=== PATIENT | male | born 1975 | race Two or more races ===

== ENCOUNTER 2021-10-02 13:18 | Inpatient (IN) | payer MEDICAID, OTHER ==
[~2021-10-02] VITALS: Ht 167.6 cm; Wt 53.8 kg
[2021-10-02 15:32] LABS: Basophils # (auto) 0 10 ^3/uL (0-0.2); Basophils % (auto) 0.5 % (0.0-2.0); Eosinophils # (auto) 0.2 10 ^3/uL (0-0.8); Eosinophils % (auto) 3.1 % (0.0-7.0); Hematocrit 30.1 % (41.0-53.0); Hemoglobin 10.1 g/dL (13.5-17.5); Lymphocytes # (auto) 0.9 10 ^3/uL (0.4-5.4); Lymphocytes % (auto) 15.6 % (10.0-50.0); Mean Corpuscular Hemoglobin 33.1 pg (28.0-32.0); Mean Corpuscular Hgb Conc. 33.5 g/dL (32.0-36.0); Mean Corpuscular Volume 98.6 fL (80.0-100.0); Monocytes # (auto) 0.4 10 ^3/uL (0-1.3); Monocytes % (auto) 7.1 % (0.0-12.0); Neutrophils # (auto) 4.4 10 ^3/uL (1.6-8.6); Neutrophils % (auto) 73.7 % (37.0-80.0); Nucleated Red Blood Cells % 0.1 %; Red Blood Cells 3.05 10^6/uL (4.5-5.90); Red Cell Distribution Width 13.4 % (11.8-14.3); White Blood Cell 5.9 10^3/uL (4.4-10.8)
[2021-10-02 15:46] LABS: Albumin 1.4 g/dL (3.4-5.0); Calcium 6.7 mg/dL (8.5-10.1); Potassium 4.2 mmol/L (3.5-5.1)
[2021-10-02 15:55] LABS: BUN/Creatinine Ratio 12.2; Bilirubin, Total 0.4 mg/dL (0.2-1.0)
[2021-10-02] MEDS ORDERED: CLINDAMYCIN 600MG IV 50 ML IV ONE (17:45)
[2021-10-02] MEDS ORDERED: ACETAMINOPHEN 325 MG TAB PO PRN (21:45)
[2021-10-02] MEDS ORDERED: DOCUSATE SOD 100 MG CAP PO PRN (21:45)
[2021-10-02] MEDS ORDERED: DEXTROSE (50%) 50ML SYRG IV PRN (21:45)
[2021-10-02] MEDS ORDERED: ONDANSETRON HCL 4 MG/2 ML VIAL IV PRN (21:45)
[2021-10-02] MEDS ORDERED: IOHEXOL 350 MG/ML 100ML IJ ONE (22:05)
[2021-10-03] MEDS ORDERED: MORPHINE SULFATE INJECTION 2 MG/ML SYRG IV PRN (00:15)
[2021-10-03] MEDS ORDERED: FUROSEMIDE 20 MG/2 ML VIAL IV ONE (00:15)
[2021-10-03] MEDS ORDERED: NITROGLYCERIN 0.4 MG SL TAB SL PRN (00:15)
[2021-10-03] MEDS: CLINDAMYCIN 600MG IV 50 ML IV SCH ×4 (04:00→22:34)
[2021-10-03] MEDS: ASCORBIC ACID 500 MG TAB PO SCH ×3 (04:32→22:36)
[2021-10-03] MEDS: InsuLIN REG 1unit/0.01ml Soln (100units/ml) SC SCH ×5 (04:32→22:40)
[2021-10-03] MEDS: SODIUM CHLOR 0.9% PF (SALINE LOCK) 10ML VIAL/SYR IV SCH ×4 (04:32→22:35)
[2021-10-03] MEDS: ACCU-CHEK COMFORT CURVE STRIP VI SCH ×5 (04:33→22:36)
[2021-10-03 04:58] LABS: Basophils # (auto) 0 10 ^3/uL (0-0.2); Basophils % (auto) 0.4 % (0.0-2.0); Eosinophils # (auto) 0.2 10 ^3/uL (0-0.8); Eosinophils % (auto) 2.8 % (0.0-7.0); Hematocrit 26.4 % (41.0-53.0); Lymphocytes # (auto) 1.1 10 ^3/uL (0.4-5.4); Lymphocytes % (auto) 19.8 % (10.0-50.0); Mean Corpuscular Hemoglobin 33.2 pg (28.0-32.0); Mean Corpuscular Hgb Conc. 34.1 g/dL (32.0-36.0); Mean Corpuscular Volume 97.4 fL (80.0-100.0); Monocytes # (auto) 0.3 10 ^3/uL (0-1.3); Monocytes % (auto) 4.9 % (0.0-12.0); Neutrophils # (auto) 4.1 10 ^3/uL (1.6-8.6); Neutrophils % (auto) 72.1 % (37.0-80.0); Red Blood Cells 2.71 10^6/uL (4.5-5.90); Red Cell Distribution Width 13.1 % (11.8-14.3); White Blood Cell 5.7 10^3/uL (4.4-10.8)
[2021-10-03] MEDS: ALBUMIN 25% 50 ML IV SCH ×3 (05:09→17:50)
[2021-10-03 05:15] LABS: Albumin 1.3 g/dL (3.4-5.0); Calcium 6.8 mg/dL (8.5-10.1); Potassium 4.3 mmol/L (3.5-5.1)
[2021-10-03 05:19] LABS: BUN/Creatinine Ratio 10.6; Bilirubin, Total 0.4 mg/dL (0.2-1.0); Total Protein 4.4 g/dL (6.4-8.2)
[2021-10-03] MEDS: HYDROcodone-ACET 5/325MG TAB PO PRN (06:57)
[2021-10-03 10:00] VITALS: BP 107/74
[2021-10-03] MEDS: ENOXAPARIN SOD 40 MG/0.4 ML SYRINGE SC SCH (10:00)
[2021-10-03] MEDS ORDERED: ZINC SULFATE 220mg CAP or TAB PO SCH (10:00)
[2021-10-03] MEDS: MULTIPLE VITAMIN TAB PO SCH (10:00)
[2021-10-03] MEDS ORDERED: FAMOTIDINE (10MG/ML) 2ML VL IV SCH (10:00)
[2021-10-03] MEDS ORDERED: FUROSEMIDE 20 MG/2 ML VIAL IV SCH (10:00)
[2021-10-03] MEDS ORDERED: ALBUMIN 25% 50 ML IV SCH (20:30)
[2021-10-03 21:12] VITALS: BP 94/71
[2021-10-03] MEDS: FUROSEMIDE 20 MG/2 ML VIAL IV SCH (22:00)
[2021-10-03] MEDS: POTASSIUM CHL 10 Meq TABLET PO SCH (22:35)
[2021-10-04] MEDS: HYDROcodone-ACET 5/325MG TAB PO PRN (01:17)
[2021-10-04 05:18] LABS: BUN/Creatinine Ratio 9.3; Calcium 7.1 mg/dL (8.5-10.1); Potassium 4.3 mmol/L (3.5-5.1)
[2021-10-04 06:00] VITALS: BP 93/60
[2021-10-04] MEDS: CLINDAMYCIN 600MG IV 50 ML IV SCH (06:36)
[2021-10-04] MEDS: ACCU-CHEK COMFORT CURVE STRIP VI SCH ×4 (06:37→22:25)
[2021-10-04] MEDS: SODIUM CHLOR 0.9% PF (SALINE LOCK) 10ML VIAL/SYR IV SCH ×3 (06:37→22:24)
[2021-10-04] MEDS: InsuLIN REG 1unit/0.01ml Soln (100units/ml) SC SCH ×4 (06:39→22:25)
[2021-10-04 09:28] VITALS: BP 88/64
[2021-10-04] MEDS: POTASSIUM CHL 10 Meq TABLET PO SCH (10:00)
[2021-10-04] MEDS: ASCORBIC ACID 500 MG TAB PO SCH (10:00)
[2021-10-04] MEDS: MULTIPLE VITAMIN TAB PO SCH (10:00)
[2021-10-04] MEDS: FUROSEMIDE 20 MG/2 ML VIAL IV SCH (10:00)
[2021-10-04] MEDS: ENOXAPARIN SOD 40 MG/0.4 ML SYRINGE SC SCH (10:00)
[2021-10-04 12:48] VITALS: BP 86/61
[2021-10-04 16:31] VITALS: BP 82/64
[2021-10-04] MEDS: LIDOCAINE VISCOUS 2% 15ML UD MT PRN (17:03)
[2021-10-04] MEDS: FUROSEMIDE 20 MG TAB PO SCH (18:00)
[2021-10-04 22:00] VITALS: BP 99/64
[2021-10-05] MEDS: HYDROcodone-ACET 5/325MG TAB PO PRN ×2 (02:43→11:26)
[2021-10-05 05:17] LABS: Basophils # (auto) 0 10 ^3/uL (0-0.2); Eosinophils # (auto) 0.2 10 ^3/uL (0-0.8); Hemoglobin 7.8 g/dL (13.5-17.5); Monocytes # (auto) 0.4 10 ^3/uL (0-1.3)
[2021-10-05 05:20] LABS: Basophils % (auto) 0.4 % (0.0-2.0); Eosinophils % (auto) 2.7 % (0.0-7.0); Hematocrit 22.3 % (41.0-53.0); Lymphocytes % (auto) 15.1 % (10.0-50.0); Mean Corpuscular Hgb Conc. 34.9 g/dL (32.0-36.0); Mean Corpuscular Volume 97.6 fL (80.0-100.0); Monocytes % (auto) 6.6 % (0.0-12.0); Neutrophils # (auto) 4.9 10 ^3/uL (1.6-8.6); Neutrophils % (auto) 75.2 % (37.0-80.0); Red Blood Cells 2.29 10^6/uL (4.5-5.90); White Blood Cell 6.6 10^3/uL (4.4-10.8)
[2021-10-05 05:35] VITALS: BP 93/55
[2021-10-05 05:37] LABS: BUN/Creatinine Ratio 7.6; Calcium 6.9 mg/dL (8.5-10.1); Potassium 3.9 mmol/L (3.5-5.1)
[2021-10-05] MEDS: FUROSEMIDE 20 MG TAB PO SCH (06:00)
[2021-10-05] MEDS: ACCU-CHEK COMFORT CURVE STRIP VI SCH ×4 (07:02→22:46)
[2021-10-05] MEDS: SODIUM CHLOR 0.9% PF (SALINE LOCK) 10ML VIAL/SYR IV SCH ×3 (07:02→22:47)
[2021-10-05] MEDS: InsuLIN REG 1unit/0.01ml Soln (100units/ml) SC SCH ×4 (07:04→22:46)
[2021-10-05 07:41] LABS: Alcohol, Urine < 3.0 mg/dL (0-10); Amphetamine Screen, Urine POSITIVE (NEGATIVE); Barbiturate Scree,Urine NEGATIVE (NEGATIVE); Benzodiazephine Screen, Urine NEGATIVE (NEGATIVE); Cannabinoid Screen, Urine NEGATIVE (NEGATIVE); Cocaine Screen, Urine NEGATIVE (NEGATIVE); Opiate Scree,Urine NEGATIVE (NEGATIVE); Phencyclidine Screen, Urine NEGATIVE (NEGATIVE)
[2021-10-05 09:00] VITALS: BP 102/69
[2021-10-05] MEDS: MULTIPLE VITAMIN TAB PO SCH (11:15)
[2021-10-05] MEDS: ENOXAPARIN SOD 40 MG/0.4 ML SYRINGE SC SCH (11:15)
[2021-10-05] MEDS: LIDOCAINE VISCOUS 2% 15ML UD MT PRN ×2 (12:18→19:12)
[2021-10-05 13:00] VITALS: BP 93/63
[2021-10-05] MEDS: GABAPENTIN 100 MG CAP PO SCH ×2 (14:08→22:47)
[2021-10-05] MEDS: SUCRALFATE 1 GM/10 ML ORAL SUSP PO SCH (16:56)
[2021-10-05 17:00] VITALS: BP 92/59
[2021-10-05 21:56] VITALS: BP 91/63
[2021-10-05] MEDS: PANTOPRAZOLE 40 MG TAB PO SCH (22:45)
[2021-10-06 04:47] VITALS: BP 96/65
[2021-10-06 06:47] LABS: Basophils # (auto) 0 10 ^3/uL (0-0.2); Hemoglobin 8.2 g/dL (13.5-17.5); Mean Corpuscular Hemoglobin 33.8 pg (28.0-32.0); Monocytes # (auto) 0.4 10 ^3/uL (0-1.3); Neutrophils # (auto) 4.3 10 ^3/uL (1.6-8.6); Nucleated Red Blood Cells % 0.1 %; Red Blood Cells 2.44 10^6/uL (4.5-5.90)
[2021-10-06 06:50] LABS: Basophils % (auto) 0.4 % (0.0-2.0); Eosinophils # (auto) 0.2 10 ^3/uL (0-0.8); Eosinophils % (auto) 2.8 % (0.0-7.0); Hematocrit 23.8 % (41.0-53.0); Lymphocytes # (auto) 0.9 10 ^3/uL (0.4-5.4); Lymphocytes % (auto) 15.6 % (10.0-50.0); Mean Corpuscular Hgb Conc. 34.6 g/dL (32.0-36.0); Mean Corpuscular Volume 97.7 fL (80.0-100.0); Monocytes % (auto) 7.1 % (0.0-12.0); Neutrophils % (auto) 74.1 % (37.0-80.0); Red Cell Distribution Width 13.1 % (11.8-14.3); White Blood Cell 5.8 10^3/uL (4.4-10.8)
[2021-10-06] MEDS: SUCRALFATE 1 GM/10 ML ORAL SUSP PO SCH ×2 (06:55→11:30)
[2021-10-06] MEDS: SODIUM CHLOR 0.9% PF (SALINE LOCK) 10ML VIAL/SYR IV SCH ×2 (06:55→14:00)
[2021-10-06] MEDS: GABAPENTIN 100 MG CAP PO SCH ×2 (06:55→14:00)
[2021-10-06] MEDS: ACCU-CHEK COMFORT CURVE STRIP VI SCH ×2 (06:57→11:30)
[2021-10-06] MEDS: InsuLIN REG 1unit/0.01ml Soln (100units/ml) SC SCH ×2 (06:57→11:30)
[2021-10-06 07:02] LABS: INR 1.44 (0.9-1.15)
[2021-10-06 07:10] LABS: BUN/Creatinine Ratio 7.6; Calcium 6.7 mg/dL (8.5-10.1); Potassium 4.2 mmol/L (3.5-5.1)
[2021-10-06 09:02] VITALS: BP 88/59
[2021-10-06] MEDS: PANTOPRAZOLE 40 MG TAB PO SCH (10:00)
[2021-10-06] MEDS: MULTIPLE VITAMIN TAB PO SCH (10:00)
[2021-10-06] MEDS ORDERED: THIAMINE HCL 100 MG TAB PO SCH (10:00)
[2021-10-06] MEDS ORDERED: PANT40TA2 PO (10:48)
[2021-10-06] MEDS ORDERED: MULTTAB75 PO (10:48)
[2021-10-06] MEDS ORDERED: NYS5LQ MT (10:48)
[2021-10-06 12:34] VITALS: BP 100/70
[2021-10-06] MEDS: LIDOCAINE VISCOUS 2% 15ML UD MT PRN (12:36)
== END 2021-10-06 15:00 | disposition home or self-care (01) | DRG 383 ==
LOC: ER 13:18 → OVERFLOW 10-03 00:13 → CENTRAL 10-03 09:05
PROVIDERS: ADMIT Nurse Practitioner Family; ATTEND Hospitalist
DX: L03.116 Cellulitis of left lower limb (principal); I11.0 Hypertensive heart disease with heart failure; E44.1 Mild protein-calorie malnutrition; I50.9 Heart failure, unspecified; E88.09 Other disorders of plasma-protein metabolism, not elsewhere classified; E11.9 Type 2 diabetes mellitus without complications; F17.210 Nicotine dependence, cigarettes, uncomplicated; L03.115 Cellulitis of right lower limb; K86.1 Other chronic pancreatitis; Z79.4 Long term (current) use of insulin; Z86.16 Personal history of COVID-19; Z83.3 Family history of diabetes mellitus; Z80.0 Family history of malignant neoplasm of digestive organs; Z88.0 Allergy status to penicillin; Z20.822 Contact with and (suspected) exposure to COVID-19
CPT/HCPCS: 36415; 71046; 71275; 74176; 80048; 80053; 80307; 82962; 83036; 83880; 84484; 85025; 85379; 85610; 85730; 87426; 93005; 93306; 93970; G0378; J1815; J3490

== ENCOUNTER 2021-10-11 12:06 | Inpatient (IN) | payer MEDICAID ==
[~2021-10-11] VITALS: Ht 167.6 cm; Wt 56.1 kg
[~2021-10-11 12:06] MED LIST: MULTTAB75 PO; NYS5LQ MT; PANT40TA2 PO
[2021-10-11] MEDS ORDERED: DEXTROSE 50% SYRINGE 50 ML IV ONE ×2 (12:15→23:29)
[2021-10-11] MEDS ORDERED: DEXTROSE (50%) 50ML SYRG IV ONE ×2 (12:30→15:15)
[2021-10-11 13:17] LABS: Basophils # (auto) 0 10 ^3/uL (0-0.2); Basophils % (auto) 0.4 % (0.0-2.0); Eosinophils # (auto) 0 10 ^3/uL (0-0.8); Hematocrit 25.9 % (41.0-53.0); Lymphocytes # (auto) 0.8 10 ^3/uL (0.4-5.4); Lymphocytes % (auto) 17.4 % (10.0-50.0); Mean Corpuscular Hemoglobin 34.1 pg (28.0-32.0); Mean Corpuscular Hgb Conc. 34.8 g/dL (32.0-36.0); Mean Corpuscular Volume 97.8 fL (80.0-100.0); Monocytes # (auto) 0.3 10 ^3/uL (0-1.3); Monocytes % (auto) 7.6 % (0.0-12.0); Neutrophils # (auto) 3.2 10 ^3/uL (1.6-8.6); Neutrophils % (auto) 73.6 % (37.0-80.0); Nucleated Red Blood Cells % 0.1 %; Red Blood Cells 2.64 10^6/uL (4.5-5.90); White Blood Cell 4.4 10^3/uL (4.4-10.8)
[2021-10-11 13:39] LABS: Albumin 1.8 g/dL (3.4-5.0); Calcium 7.3 mg/dL (8.5-10.1); Potassium 3.8 mmol/L (3.5-5.1)
[2021-10-11 13:40] LABS: Lactic Acid w/Reflex 5.5 mmol/L (0.4-2.0)
[2021-10-11 13:48] LABS: BUN/Creatinine Ratio 12.2; Bilirubin, Total 0.4 mg/dL (0.2-1.0); Total Protein 5.3 g/dL (6.4-8.2)
[2021-10-11] MEDS ORDERED: DEXTROSE 10% 1,000 ML IV ONE (14:15)
[2021-10-11] MEDS ORDERED: D5W 5% 1,000 ML IV SCH (16:30)
[2021-10-11] MEDS ORDERED: ACETAMINOPHEN 325 MG TAB PO PRN (16:30)
[2021-10-11] MEDS ORDERED: ONDANSETRON HCL 4 MG/2 ML VIAL IV PRN (16:30)
[2021-10-11] MEDS ORDERED: DEXTROSE (25%) 10 ML SYRG IV PRN (16:30)
[2021-10-11] MEDS: DOCUSATE SOD 100 MG CAP PO SCH (20:44)
[2021-10-11] MEDS ORDERED: SODIUM CHLORIDE 0.9% 1,000 ML IV ONE (21:15)
[2021-10-11] MEDS: THIAMINE 100mg/ml INJ (200mg/2ml VIAL) IV SCH (22:24)
[2021-10-11] MEDS: FOLIC ACID 1 MG in D5W 5% 50 ML INJ SCH (23:21)
[2021-10-12] VITALS (7 sets, daily range): BP systolic 96–114; BP diastolic 66–74
[2021-10-12 01:46] LABS: Lactic Acid w/Reflex 2.7 mmol/L (0.4-2.0)
[2021-10-12] MEDS: ACCU-CHEK COMFORT CURVE STRIP VI SCH ×6 (02:00→22:10)
[2021-10-12] MEDS: DEXTROSE (50%) 50ML SYRG IV PRN ×5 (03:43→20:27)
[2021-10-12] MEDS: D5W 5% 1,000 ML IV SCH ×3 (04:13→20:28)
[2021-10-12 07:04] LABS: Basophils # (auto) 0 10 ^3/uL (0-0.2); Basophils % (auto) 0.1 % (0.0-2.0); Eosinophils # (auto) 0.1 10 ^3/uL (0-0.8); Lymphocytes # (auto) 0.7 10 ^3/uL (0.4-5.4); Neutrophils # (auto) 3.8 10 ^3/uL (1.6-8.6)
[2021-10-12 07:07] LABS: Eosinophils % (auto) 2.4 % (0.0-7.0); Hematocrit 21.3 % (41.0-53.0); Hemoglobin 7.5 g/dL (13.5-17.5); Lymphocytes % (auto) 13.5 % (10.0-50.0); Mean Corpuscular Hemoglobin 34.7 pg (28.0-32.0); Mean Corpuscular Hgb Conc. 35.5 g/dL (32.0-36.0); Mean Corpuscular Volume 97.9 fL (80.0-100.0); Monocytes # (auto) 0.3 10 ^3/uL (0-1.3); Nucleated Red Blood Cells % 0.1 %; Red Blood Cells 2.17 10^6/uL (4.5-5.90); Red Cell Distribution Width 13.2 % (11.8-14.3)
[2021-10-12 07:26] LABS: BUN/Creatinine Ratio 13.9; Calcium 7.1 mg/dL (8.5-10.1); Potassium 3.4 mmol/L (3.5-5.1)
[2021-10-12] MEDS: THIAMINE 100mg/ml INJ (200mg/2ml VIAL) IV SCH (09:27)
[2021-10-12] MEDS: FOLIC ACID 1 MG in D5W 5% 50 ML INJ SCH (09:28)
[2021-10-12] MEDS: DOCUSATE SOD 100 MG CAP PO SCH ×2 (09:29→22:00)
[2021-10-12] MEDS ORDERED: GLUCAGON HYDROCHLORIDE (RDNA) 1 MG VIAL IV ONE (10:45)
[2021-10-12] MEDS: HYDROcodone-ACET 5/325MG TAB PO PRN ×2 (16:34→20:41)
[2021-10-12] MEDS ORDERED: THROAT LOZENGES(CEPASTAT) MT PRN (21:30)
[2021-10-13] MEDS: ACCU-CHEK COMFORT CURVE STRIP VI SCH ×6 (01:45→22:30)
[2021-10-13] MEDS: HYDROcodone-ACET 5/325MG TAB PO PRN ×3 (01:45→17:15)
[2021-10-13] MEDS: DEXTROSE (50%) 50ML SYRG IV PRN (01:50)
[2021-10-13 02:02] LABS: Alcohol, Urine < 3.0 mg/dL (0-10); Amphetamine Screen, Urine POSITIVE (NEGATIVE); Barbiturate Scree,Urine NEGATIVE (NEGATIVE); Benzodiazephine Screen, Urine NEGATIVE (NEGATIVE); Cannabinoid Screen, Urine NEGATIVE (NEGATIVE); Cocaine Screen, Urine NEGATIVE (NEGATIVE); Opiate Scree,Urine NEGATIVE (NEGATIVE); Phencyclidine Screen, Urine NEGATIVE (NEGATIVE)
[2021-10-13] MEDS: DEXTROSE 10% 1,000 ML IV SCH ×2 (02:34→17:14)
[2021-10-13 02:38] LABS: Urine Bacteria NONE SEEN /hpf (None Seen); Urine Blood Negative /uL (Negative); Urine Specific Gravity 1.006 (1.001-1.035); Urine WBC <1 /hpf (0 - 3)
[2021-10-13 05:00] VITALS: BP 96/65
[2021-10-13] MEDS: LIDOCAINE VISCOUS 2% 15ML UD MT PRN ×2 (08:30→16:29)
[2021-10-13 09:00] VITALS: BP 99/67
[2021-10-13] MEDS: DOCUSATE SOD 100 MG CAP PO SCH ×2 (09:13→22:00)
[2021-10-13] MEDS: FOLIC ACID 1 MG in D5W 5% 50 ML INJ SCH (09:13)
[2021-10-13] MEDS: THIAMINE 100mg/ml INJ (200mg/2ml VIAL) IV SCH (09:14)
[2021-10-13 13:00] VITALS: BP 97/70
[2021-10-13 17:18] VITALS: BP 93/67
[2021-10-13 20:00] VITALS: BP 92/66
[2021-10-13 20:02] LABS: Basophils # (auto) 0 10 ^3/uL (0-0.2); Basophils % (auto) 0.2 % (0.0-2.0); Eosinophils # (auto) 0.2 10 ^3/uL (0-0.8); Eosinophils % (auto) 3.6 % (0.0-7.0); Hematocrit 24.6 % (41.0-53.0); Hemoglobin 8.5 g/dL (13.5-17.5); Lymphocytes # (auto) 0.7 10 ^3/uL (0.4-5.4); Lymphocytes % (auto) 13.1 % (10.0-50.0); Mean Corpuscular Hemoglobin 34.1 pg (28.0-32.0); Mean Corpuscular Hgb Conc. 34.3 g/dL (32.0-36.0); Mean Corpuscular Volume 99.3 fL (80.0-100.0); Monocytes # (auto) 0.4 10 ^3/uL (0-1.3); Monocytes % (auto) 8.3 % (0.0-12.0); Neutrophils # (auto) 3.8 10 ^3/uL (1.6-8.6); Neutrophils % (auto) 74.8 % (37.0-80.0); Red Blood Cells 2.48 10^6/uL (4.5-5.90); Red Cell Distribution Width 12.7 % (11.8-14.3); White Blood Cell 5.1 10^3/uL (4.4-10.8)
[2021-10-14] MEDS: HYDROcodone-ACET 5/325MG TAB PO PRN ×3 (01:51→10:45)
[2021-10-14] MEDS: ACCU-CHEK COMFORT CURVE STRIP VI SCH ×5 (01:52→18:18)
[2021-10-14] MEDS: DEXTROSE 10% 1,000 ML IV SCH ×2 (04:40→18:00)
[2021-10-14 05:00] VITALS: BP 94/59
[2021-10-14] MEDS ORDERED: ONDA-144 PO (06:41)
[2021-10-14] MEDS ORDERED: ALOG1TAB2 PO (06:41)
[2021-10-14] MEDS ORDERED: OMEP-434 PO (06:41)
[2021-10-14] MEDS ORDERED: METF-371 PO (06:41)
[2021-10-14] MEDS ORDERED: MELA3TAB14 PO (06:41)
[2021-10-14 09:00] VITALS: BP 93/62
[2021-10-14] MEDS ORDERED: PANTOPRAZOLE 40 MG TAB PO SCH (10:00)
[2021-10-14] MEDS: DOCUSATE SOD 100 MG CAP PO SCH (10:00)
[2021-10-14] MEDS: FOLIC ACID 1 MG in D5W 5% 50 ML INJ SCH (10:46)
[2021-10-14] MEDS: THIAMINE 100mg/ml INJ (200mg/2ml VIAL) IV SCH (10:46)
[2021-10-14 13:00] VITALS: BP 114/79
[2021-10-14 17:00] VITALS: BP 110/71
== END 2021-10-14 21:15 | disposition home health service (06) | DRG 812 ==
LOC: EDBD 12:06 → ER 12:06 → TELE 16:16 → TELE-WESTW 10-12 01:12
PROVIDERS: ADMIT Internal Medicine; ATTEND Internal Medicine
DX: T43.621A Poisoning by amphetamines, accidental (unintentional), initial encounter (principal); G92.8 Other toxic encephalopathy; E11.649 Type 2 diabetes mellitus with hypoglycemia without coma; I50.9 Heart failure, unspecified; I11.0 Hypertensive heart disease with heart failure; K76.0 Fatty (change of) liver, not elsewhere classified; R91.1 Solitary pulmonary nodule; K12.0 Recurrent oral aphthae; K42.9 Umbilical hernia without obstruction or gangrene; K59.00 Constipation, unspecified; F17.210 Nicotine dependence, cigarettes, uncomplicated; Z20.822 Contact with and (suspected) exposure to COVID-19; K21.9 Gastro-esophageal reflux disease without esophagitis; K86.1 Other chronic pancreatitis; Z83.3 Family history of diabetes mellitus; Z91.14 Patient's other noncompliance with medication regimen; Z80.9 Family history of malignant neoplasm, unspecified; Z68.20 Body mass index [BMI] 20.0-20.9, adult; Z88.0 Allergy status to penicillin
CPT/HCPCS: 36415; 71045; 74176; 80048; 80053; 80307; 80320; 81001; 82010; 82947; 82962; 83525; 83605; 84484; 85025; 87040; 87081; 87426; 93005; 96361; 96365; 96375; 99291; G0378; J7060